=== PATIENT | male | born 1965 ===

== ENCOUNTER 2016-10-05 15:39 | Observation (INO) | payer OTHER ==
--- NOTE | 2016-10-05 15:45 | ED PDOC ---
HPI: General Adult Time Seen by Provider: 10/05/16 15:44 Chief Complaint (Nursing): Medical Clearance Chief Complaint (Provider): clearance for incarceration History Per: Patient, Other (Police) Additional Complaint(s): 51 year old male with history of anxiety is brought into the ED by [place] police for psychiatric and medical clearance prior to incarceration. Patient is currently under arrest. Patient also reports having chest pain earlier, but this has resolved upon arrival to ED. No associated shortness of breath or dyspnea on exertion. Patient denies suicidal or homicidal ideation. PMD: Dr. Jennifer Liu Past Medical History Reviewed: Historical Data, Nursing Documentation, Vital Signs Vital Signs: Last Vital Signs Temp 98.7 F 10/05/16 19:56 Pulse 88 10/05/16 19:56 Resp 19 10/05/16 19:56 BP 130/86 10/05/16 19:56 Pulse Ox 97 10/05/16 19:59 - Medical History PMH: Anxiety - Surgical History Surgical History: No Surg Hx - Family History Family History: States: No Known Family Hx - Social History Current smoker - smoking cessation education provided: No Alcohol: Occasional Drugs: Denies - Home Medications Home Medications: Ambulatory Orders Medication Instructions Recorded Aspirin [Aspirin Chewable] 81 mg PO DAILY 10/05/16 - Allergies Allergies/Adverse Reactions: Allergies Allergy/AdvReac Type Severity Reaction Status Date / Time No Known Allergies Allergy Verified 10/05/16 15:40 Review of Systems ROS Statement: Except As Marked, All Systems Reviewed And Found Negative Cardiovascular: Positive for: Chest Pain (earlier, now resolved) Respiratory: Negative for: Cough, Shortness of Breath, SOB with Exertion Gastrointestinal: Negative for: Nausea, Vomiting Psych: Positive for: Anxiety, Other (etoh). Negative for: Suicidal ideation ( denies suicidal and homicidal ideation) Physical Exam - Reviewed Nursing Documentation Reviewed: Yes Vital Signs Reviewed: Yes - Physical Exam Appears: Positive for: Well, Non-toxic, No Acute Distress Head Exam: Positive for: ATRAUMATIC, NORMAL INSPECTION Skin: Positive for: Normal Color, Warm, DRY Eye Exam: Positive for: EOMI, Normal appearance, PERRL ENT: Positive for: Other (etoh on breath) Neck: Positive for: Normal, Painless ROM Cardiovascular/Chest: Positive for: Regular Rate, Rhythm Respiratory: Positive for: Normal Breath Sounds. Negative for: Respiratory Distress Extremity: Positive for: Normal ROM Neurologic/Psych: Positive for: Alert, Oriented (x 3), Gait (steady), Other ( intoxicated, answers questons appropriately) - Laboratory Results Result Diagrams: 10/05/16 16:34 10/05/16 16:34 - ECG Interpretation Of ECG: NSR 66 bpm, no acute finding, reviewed by hand sign writer and ED attending. O2 Sat by Pulse Oximetry: 97 (RA) Pulse Ox Interpretation: Normal Medical Decision Making Medical Decision Makin:44 Initial impression: 51 year old male brought into the ED for psychiatric and medical clearance prior to incarceration. Intial plan: * CBC * CMP * troponin I * EKG * alcohol level * urine drug screen * crisis evaluation as ordered * Admit to ED observation Scribe Attestation: Documented by Ana Lilia Pham, acting as a scribe for Millicent Apodaca PA-C. Provider Scribe Attestation: All medical record entries made by the Scribe were at my direction and personally dictated by me. I have reviewed the chart and agree that the record accurately reflects my personal performance of the history, physical exam, medical decision making, and the department course for this patient. I have also personally directed, reviewed, and agree with the discharge instructions and disposition. ED OBSERVATION Date of observation admission: 10/05/16 Time of observation admission: 17:14 - Observation admission statement Patient is being placed in observation because:: ETOH intoxication, crisis clearance - Goals of Observation Goals of observation are:: Monitor patient pending sobriety, needs crisis eval when sober. - Progress Note Progress Note: 10/05/16 17:15 BAL is 239. Patient can be seen by crisis at 9:30 pm as per etoh level. [employer] senior officer is at bedside. Patient will continue to be monitored in ED. 10/05/16 18:25 Patient is resting comfortably, in no distress 10/05/16 19:58 Patient is sleeping, vital signs stable, [employer] police at bedside. 10/05/16 21:31 Patient was seen by crisis counselor. As per counselor and psychiatrist invisible braces orthodontist , Peyman Desir, patient does not meet criteria for admission and is stable for discharge. Disposition - Clinical Impression Clinical Impression: Alcohol intoxication, Anxiety - Disposition Disposition: Discharged/Transfer to Law Enforcement Disposition Time: 21:32 Condition: STABLE Results - Lab Results Lab Results: 10/05/16 10/05/16 10/05/16 16:34 16:34 16:10 WBC 10.3 RBC 5.55 Hgb 16.4 Hct 47.3 MCV 85.2 D MCH 29.5 MCHC 34.7 RDW 13.9 Plt Count 259 MPV 8.5 Neut % (Auto) 60.3 Lymph % (Auto) 31.5 [place] % (Auto) 6.9 Eos % (Auto) 0.9 Baso % (Auto) 0.4 Neut # 6.2 Lymph # 3.2 [place] # 0.7 Eos # 0.1 Baso # 0.0 Sodium 150 H Potassium 4.1 Chloride 112 H Carbon Dioxide 20 L Anion Gap 22 H BUN 14 Creatinine 0.9 Est GFR ( Amer) > 60 Est GFR (Non-Af Amer) > 60 Random Glucose 90 Calcium 9.2 Total Bilirubin 1.0 AST 66 H ALT 50 Alkaline Phosphatase 67 Troponin I < 0.0120 Total Protein 8.8 H Albumin 4.6 Globulin 4.2 H Albumin/Globulin Ratio 1.1 Urine Opiates Screen Negative Urine Methadone Screen Negative Ur Barbiturates Screen Negative Ur Phencyclidine Scrn Negative Ur Amphetamines Screen Negative U Benzodiazepines Scrn Negative U Oth Cocaine Metabols Negative U Cannabinoids Screen Negative Alcohol, Quantitative 239 H
[2016-10-05 16:43] LABS: BASO % 0.4 % (0.0-2.0); EOS # 0.1 K/uL (0.0-0.7); EOS % 0.9 % (0.0-4.0); HEMATOCRIT 47.3 % (35.0-51.0); LYMPH # 3.2 K/uL (1.0-4.3); LYMPH % 31.5 % (20.0-40.0); MEAN CELL VOLUME 85.2 fl (80.0-94.0); MEAN CORPUSCULAR HEMOGLOBIN 29.5 pg (27.0-31.0); MEAN CORPUSCULAR HGB CONC 34.7 g/dL (33.0-37.0); MEAN PLATELET VOLUME 8.5 fl (7.2-11.7); MONO # 0.7 K/uL (0.0-0.8); MONO % 6.9 % (0.0-10.0); NEUT # 6.2 K/uL (1.8-7.0); NEUT % 60.3 % (50.0-75.0); NRBC % 0.1 % (0.0-0.0); RED CELL DISTRIBUTION WIDTH 13.9 % (11.5-14.5); WHITE BLOOD COUNT 10.3 K/uL (4.8-10.8)
[2016-10-05 17:09] LABS: ALB/GLOB RATIO 1.1 (1.0-2.1); ALCOHOL SERUM 239 mg/dl (0-10); ALKALINE PHOSPHATASE 67 U/L (38-126); ALT/SGPT 50 U/L (21-72); AST/SGOT 66 U/L (17-59); BLOOD UREA NITROGEN 14 mg/dl (9-20); CALCIUM 9.2 mg/dL (8.4-10.2); CARBON DIOXIDE 20 mmol/L (22-30); CHLORIDE 112 mmol/L (98-107); GFR AFRICAN-AMERICAN > 60; GLUCOSE,RANDOM 90 mg/dL (75-110); POTASSIUM 4.1 MMOL/L (3.6-5.0); SODIUM 150 mmol/l (132-148); TOTAL PROTEIN 8.8 G/DL (6.3-8.2)
[2016-10-05 19:56] VITALS: BP 130/86; PULSE 88; RESP 19; TEMP 98.7
[2016-10-05 19:59] VITALS: O2SAT 97
--- NOTE | 2016-10-06 10:03 | CARD ---
APPROVED REPORT EKG Measurement Heart [id number] PA 170P46 [id number] <Conclusion> Normal sinus rhythm Possible Left atrial enlargement ST elevation, probably due to early repolarization Borderline ECG
== END 2016-10-05 21:47 | disposition home or self-care (01) ==
LOC: H.ER 15:39 → H.EROBSV 17:13
PROVIDERS: ADMIT Emergency Medicine; ATTEND Emergency Medicine
DX: F10.129 Alcohol abuse with intoxication, unspecified (principal); F41.9 Anxiety disorder, unspecified

== ENCOUNTER 2016-12-15 13:52 | Emergency (ER) | payer OTHER ==
[2016-12-15 13:57] VITALS: BP 136/90; PULSE 90; RESP 19; TEMP 98.1; O2SAT 100
--- NOTE | 2016-12-15 14:16 | ED PDOC ---
HPI: Psych/Substance Abuse Time Seen by Provider: 12/15/16 14:10 Chief Complaint (Nursing): Alcohol Ingestion Chief Complaint (Provider): Alcohol Ingestion History Per: Patient History/Exam Limitations: no limitations Onset/Duration Of Symptoms: Hrs Additional Complaint(s): Alin Greenwood is a 51 year old male with a past medical history of anxiety who presents to the ED accompanied by [place] police for evaluation of alcohol intoxication. Police report they found patient sleep on the street. Past Medical History Reviewed: Historical Data, Nursing Documentation, Vital Signs Vital Signs: Last Vital Signs Temp 98.1 F 12/15/16 13:54 Pulse 90 12/15/16 13:54 Resp 19 12/15/16 13:54 BP 136/90 12/15/16 13:54 Pulse Ox 100 12/15/16 13:54 - Medical History PMH: Anxiety Denies: Diabetes, Hepatitis, HIV, HTN, Seizures, Sexually Transmitted Disease - Surgical History Surgical History: No Surg Hx - Family History Family History: States: Unknown Family Hx - Immunization History Hx Tetanus Toxoid Vaccination: No Hx Influenza Vaccination: No Hx Pneumococcal Vaccination: No - Home Medications Home Medications: Ambulatory Orders Medication Instructions Recorded Aspirin [Aspirin Chewable] 81 mg PO DAILY 10/05/16 - Allergies Allergies/Adverse Reactions: Allergies Allergy/AdvReac Type Severity Reaction Status Date / Time No Known Allergies Allergy Verified 10/05/16 15:40 Review of Systems ROS Statement: Except As Marked, All Systems Reviewed And Found Negative Physical Exam - Reviewed Nursing Documentation Reviewed: Yes Vital Signs Reviewed: Yes - Physical Exam Appears: Positive for: Well, Non-toxic, No Acute Distress Head Exam: Positive for: ATRAUMATIC, NORMAL INSPECTION, NORMOCEPHALIC Skin: Positive for: Normal Color Eye Exam: Positive for: Normal appearance ENT: Positive for: Normal ENT Inspection Neck: Positive for: Normal Cardiovascular/Chest: Positive for: Regular Rate, Rhythm. Negative for: Murmur , Tachycardia Respiratory: Positive for: Normal Breath Sounds. Negative for: Wheezing, Respiratory Distress Neurologic/Psych: Positive for: Alert, Oriented, Gait (Stable), Other (Speech is not slurred) - ECG O2 Sat by Pulse Oximetry: 100 (RA) Pulse Ox Interpretation: Normal Medical Decision Making Medical Decision Makin: Initial Impression: 51 year old male with alcohol ingestion Initial Plan: Patient will be discharged home via cab. Scribe Attestation: Documented by Mikey Fortune acting as a scribe for Armida Vasquez PA-C. Provider Scribe Attestation: All medical record entries made by the Scribe were at my direction and personally dictated by me. I have reviewed the chart and agree that the record accurately reflects my personal performance of the history, physical exam, medical decision making, and the department course for this patient. I have also personally directed, reviewed, and agree with the discharge instructions and disposition. Disposition - Clinical Impression Clinical Impression: Alcohol abuse - Patient ED Disposition Is Patient to be Admitted: No - Disposition Disposition: Routine/Home Disposition Time: 14:14 Condition: STABLE Instructions: Alcohol Intoxication (ED)
== END 2016-12-15 14:11 | disposition home or self-care (01) ==
LOC: H.ER 13:52
DX: F10.10 Alcohol abuse, uncomplicated (principal); F41.9 Anxiety disorder, unspecified; Z79.82 Long term (current) use of aspirin

== ENCOUNTER 2017-03-16 18:17 | Emergency (ER) | payer OTHER ==
[2017-03-16 18:23] VITALS: BP 140/89; PULSE 71; RESP 16; TEMP 96.2; O2SAT 100
[2017-03-16 19:18] LABS: HEMATOCRIT 46.9 % (35.0-51.0); MEAN CELL VOLUME 89.8 fl (80.0-94.0); MEAN CORPUSCULAR HEMOGLOBIN 30.9 pg (27.0-31.0); MEAN CORPUSCULAR HGB CONC 34.4 g/dL (33.0-37.0); RED CELL DISTRIBUTION WIDTH 15.7 % (11.5-14.5); WHITE BLOOD COUNT 9.4 K/uL (4.8-10.8)
--- NOTE | 2017-03-16 19:52 | ED PDOC ---
HPI: Psych/Substance Abuse Time Seen by Provider: 03/16/17 18:40 Chief Complaint (Nursing): Anxiety Chief Complaint (Provider): anxiety Additional Complaint(s): 51yo M in ED for eval of chest pain and anxiety and required medical clearance and pysch clearance. admits to hx of anxiety and heart disease-takes ASA 81mg. no SI/HI/hallucinations Past Medical History Reviewed: Historical Data, Nursing Documentation, Vital Signs Vital Signs: Last Vital Signs Temp 96.2 F L 03/16/17 18:20 Pulse 71 03/16/17 18:20 Resp 16 03/16/17 18:20 BP 140/89 03/16/17 18:20 Pulse Ox 100 03/16/17 18:20 - Medical History PMH: Anxiety Denies: Diabetes, Hepatitis, HIV, HTN, Seizures, Sexually Transmitted Disease - Family History Family History: States: Unknown Family Hx - Immunization History Hx Tetanus Toxoid Vaccination: No Hx Influenza Vaccination: No Hx Pneumococcal Vaccination: No - Home Medications Home Medications: Ambulatory Orders Medication Instructions Recorded Aspirin [Aspirin Chewable] 81 mg PO DAILY 10/05/16 - Allergies Allergies/Adverse Reactions: Allergies Allergy/AdvReac Type Severity Reaction Status Date / Time No Known Allergies Allergy Verified 10/05/16 15:40 Review of Systems ROS Statement: Except As Marked, All Systems Reviewed And Found Negative Constitutional: Negative for: Fever, Chills, Weakness Psych: Positive for: Anxiety. Negative for: Depression, Psychosis, Suicidal ideation, Withdrawal Physical Exam - Reviewed Nursing Documentation Reviewed: Yes Vital Signs Reviewed: Yes - Physical Exam Appears: Positive for: Well, Non-toxic, No Acute Distress Head Exam: Positive for: ATRAUMATIC, NORMAL INSPECTION, NORMOCEPHALIC Skin: Positive for: Normal Color, Warm, DRY Eye Exam: Positive for: Normal appearance, EOMI, PERRL Cardiovascular/Chest: Positive for: Regular Rate, Rhythm Respiratory: Positive for: CNT, Normal Breath Sounds Gastrointestinal/Abdominal: Positive for: Normal Exam, Bowel Sounds, Soft Extremity: Positive for: Normal ROM Neurologic/Psych: Positive for: Alert, Oriented - Laboratory Results Result Diagrams: 03/16/17 18:55 03/16/17 18:55 - ECG ECG Rhythm: Positive for: Normal QRS, Normal ST Segment, Sinus Rhythm O2 Sat by Pulse Oximetry: 100 - Progress ED Course And Treament: Orders Category Date Time Status ELECTROCARDIOGRAM Stat Cardiology 03/16/17 18:41 Ordered ALCOHOL SERUM Stat Chem 03/16/17 18:55 Received COMP METABOLIC PANEL Stat Chem 03/16/17 18:55 Received TROPONIN I Stat Chem 03/16/17 18:55 Received EKG-ED [[id number]] STAT ED Care 03/16/17 18:41 Active CBC Stat HEIDY 03/16/17 18:55 Completed Medical Decision Making Medical Decision Making: pt is cleared by karissa-cat anxiety under MD Della Pt with low K+-replenished with K-dur . otherwise stable for d.c-medically cleared 03/16/17 18:55 WBC 9.4 RBC 5.23 Hgb 16.1 Hct 46.9 MCV 89.8 D MCH 30.9 MCHC 34.4 RDW 15.7 H Plt Count 278 Disposition - Clinical Impression Clinical Impression: Alcohol abuse, Anxiety - Patient ED Disposition Is Patient to be Admitted: No Counseled Patient/Family Regarding: Studies Performed, Need For Followup - Disposition Disposition: Routine/Home Disposition Time: 20:07 Condition: STABLE Additional Instructions: Alin Arnold is medically and psychiatrically cleared at this time for incarceration. Instructions: Anxiety (ED) Forms: [employer] (Kenyan)
[2017-03-16 20:02] LABS: BLOOD UREA NITROGEN 12 mg/dl (9-20); CARBON DIOXIDE 19 mmol/L (22-30); CHLORIDE 108 mmol/L (98-107); GFR AFRICAN-AMERICAN > 60; GLUCOSE,RANDOM 123 mg/dL (75-110); POTASSIUM 3.3 MMOL/L (3.6-5.0); SODIUM 145 mmol/l (132-148)
[2017-03-16 20:03] LABS: ALB/GLOB RATIO 1.3 (1.0-2.1); ALKALINE PHOSPHATASE 63 U/L (38-126); ALT/SGPT 55 U/L (21-72); AST/SGOT 49 U/L (17-59); BILIRUBIN,TOTAL 0.4 mg/dl (0.2-1.3); CALCIUM 8.9 mg/dL (8.4-10.2); TOTAL PROTEIN 7.9 G/DL (6.3-8.2)
[2017-03-16 20:04] LABS: ALCOHOL SERUM 130 mg/dl (0-10)
[2017-03-16] MEDS ORDERED: Potassium Chloride 10 mEq ER Tab PO STA (20:06)
[2017-03-16] MEDS ORDERED: Potassium Chloride 10 mEq ER Tab PO ONE (20:10)
--- NOTE | 2017-03-17 08:31 | CARD ---
APPROVED REPORT EKG Measurement Heart [id number] CA 154P58 [id number] <Conclusion> Normal sinus rhythm Possible Left atrial enlargement Borderline ECG
== END 2017-03-16 21:15 ==
LOC: H.ER 18:17
DX: F41.9 Anxiety disorder, unspecified (principal)

== ENCOUNTER 2017-03-22 06:13 | Emergency (ER) | payer OTHER ==
[2017-03-22 06:22] VITALS: TEMP 98.6; O2SAT 98
--- NOTE | 2017-03-22 07:30 | ED PDOC ---
HPI: Psych/Substance Abuse Time Seen by Provider: 03/22/17 07:16 Chief Complaint (Nursing): Medical Clearance Chief Complaint (Provider): Anxiety History Per: Patient, EMS History/Exam Limitations: no limitations Onset/Duration Of Symptoms: Days (today) Additional Complaint(s): Pt. was under arrest for warrants. He was at the police station and said he was anxious so brought to the ED. Pt. denies suicidal or homicidal ideation. No weakness, headaches, chest pain, abd pain, dyspnea, dizziness. No physical complaints. No fall or injury. No drugs or etoh. Past Medical History Reviewed: Nursing Documentation, Vital Signs Vital Signs: Last Vital Signs Temp 98.6 F 03/22/17 06:19 Pulse 78 03/22/17 06:19 Resp 16 03/22/17 06:19 BP 148/93 H 03/22/17 06:19 Pulse Ox 98 03/22/17 06:19 - Medical History PMH: Anxiety Denies: Diabetes, Hepatitis, HIV, HTN, Seizures, Sexually Transmitted Disease - Surgical History Surgical History: No Surg Hx - Family History Family History: States: Unknown Family Hx - Social History Current smoker - smoking cessation education provided: No Alcohol: None Drugs: Denies - Immunization History Hx Tetanus Toxoid Vaccination: No Hx Influenza Vaccination: No Hx Pneumococcal Vaccination: No - Home Medications Home Medications: Ambulatory Orders Medication Instructions Recorded Aspirin [Aspirin Chewable] 81 mg PO DAILY 10/05/16 - Allergies Allergies/Adverse Reactions: Allergies Allergy/AdvReac Type Severity Reaction Status Date / Time No Known Allergies Allergy Verified 10/05/16 15:40 Review of Systems ROS Statement: Except As Marked, All Systems Reviewed And Found Negative Physical Exam - Reviewed Nursing Documentation Reviewed: Yes Vital Signs Reviewed: Yes - Physical Exam Appears: Positive for: Non-toxic, No Acute Distress Head Exam: Positive for: ATRAUMATIC, NORMAL INSPECTION, NORMOCEPHALIC Skin: Positive for: Normal Color, Warm, DRY Eye Exam: Positive for: EOMI, Normal appearance, PERRL ENT: Positive for: Normal ENT Inspection Neck: Positive for: Normal, Painless ROM Cardiovascular/Chest: Positive for: Regular Rate, Rhythm Respiratory: Positive for: CNT, Normal Breath Sounds Gastrointestinal/Abdominal: Positive for: Normal Exam, Bowel Sounds, Soft. Negative for: Tenderness Back: Positive for: Normal Inspection. Negative for: L CVA Tenderness, R CVA Tenderness Extremity: Positive for: Normal ROM. Negative for: Tenderness, Pedal Edema Neurologic/Psych: Positive for: Alert, Oriented - ECG O2 Sat by Pulse Oximetry: 98 Pulse Ox Interpretation: Normal - Progress ED Course And Treament: 813: Stable. AAOx3. Pain free. Crisis saw pt. Does not meet criteria for admit. Fu outpt. Disposition - Clinical Impression Clinical Impression: Anxiety - Patient ED Disposition Is Patient to be Admitted: No Counseled Patient/Family Regarding: Diagnosis, Need For Followup - Disposition Referrals: [facility] [Outside] - 03/24/17 [facility] [Outside] - 03/24/17 Disposition: Routine/Home Disposition Time: 08:14 Condition: STABLE Additional Instructions: Return if not better in 3 days. You are psychiatrically and medically cleared for incarceration. Instructions: Anxiety (ED)
[2017-03-22 08:54] VITALS: BP 125/79; PULSE 75; RESP 14
== END 2017-03-22 08:49 ==
LOC: H.ER 06:13
DX: F41.9 Anxiety disorder, unspecified (principal); Z79.82 Long term (current) use of aspirin; Z02.89 Encounter for other administrative examinations

== ENCOUNTER 2017-07-13 03:48 | Emergency (ER) | payer OTHER ==
[2017-07-13 03:48] VITALS: BMI 26.4
[2017-07-13 04:04] VITALS: BP 133/84; PULSE 77; RESP 16; TEMP 97.4; O2SAT 96
--- NOTE | 2017-07-13 04:09 | ED PDOC ---
HPI: General Adult Time Seen by Provider: 07/13/17 04:02 Chief Complaint (Nursing): Medical Clearance Chief Complaint (Provider): medical and psychiatric clearance History Per: Patient, Other (Police) Additional Complaint(s): 51-year-old male currently under arrest arrives with police officers for medical and psychiatric clearance prior to incarceration. The patient states he has a history of anxiety. He offers no acute medical or psychiatric complaints at this time and denies suicidal or homicidal ideation. Past Medical History Reviewed: Historical Data, Nursing Documentation, Vital Signs Vital Signs: Last Vital Signs Temp 97.4 F L 07/13/17 03:59 Pulse 77 07/13/17 03:59 Resp 16 07/13/17 03:59 BP 133/84 07/13/17 03:59 Pulse Ox 96 07/13/17 04:35 - Medical History PMH: Anxiety - Surgical History Other surgeries: lymph node removal from groin, lipoma removal from forehead - Family History Family History: States: No Known Family Hx - Social History Current smoker - smoking cessation education provided: Yes Alcohol: Social Drugs: Denies - Home Medications Home Medications: Ambulatory Orders Medication Instructions Recorded Aspirin [Aspirin Chewable] 81 mg PO DAILY 10/05/16 - Allergies Allergies/Adverse Reactions: Allergies Allergy/AdvReac Type Severity Reaction Status Date / Time No Known Allergies Allergy Verified 03/28/17 10:06 Review of Systems ROS Statement: Except As Marked, All Systems Reviewed And Found Negative Constitutional: Negative for: Fever Cardiovascular: Negative for: Chest Pain, Palpitations Respiratory: Negative for: Cough Gastrointestinal: Negative for: Vomiting Psych: Negative for: Suicidal ideation Physical Exam - Reviewed Nursing Documentation Reviewed: Yes Vital Signs Reviewed: Yes - Physical Exam Appears: Positive for: Well, Non-toxic, No Acute Distress Skin: Negative for: Rash Eye Exam: Positive for: Normal appearance Cardiovascular/Chest: Positive for: Regular Rate, Rhythm Respiratory: Positive for: Normal Breath Sounds. Negative for: Wheezing, Respiratory Distress Neurologic/Psych: Positive for: Alert, Oriented - ECG O2 Sat by Pulse Oximetry: 96 Pulse Ox Interpretation: Normal Medical Decision Making Medical Decision Makin51 year old in police custody, here for medical and psychiatric clearance. Plan: Crisis eval As per crisis counselor and psychiatrist operations engineer, Dr. Hurst, patient does not meet criteria for admission and is stable for discharge. Patient is medically and psychiatrically stable for incarceration. Disposition - Clinical Impression Clinical Impression: Anxiety, Medical clearance for incarceration - Patient ED Disposition Is Patient to be Admitted: No - Disposition Referrals: [facility] [Outside] Disposition: Discharged/Transfer to Law Enforcement Disposition Time: 04:46 Condition: STABLE Additional Instructions: Patient is medically and psychiatrically stable for incarceration. Instructions: Anxiety (ED) Forms: [employer] (Kazakh)
== END 2017-07-13 04:59 | disposition home or self-care (01) ==
LOC: H.ER 03:48
DX: F41.9 Anxiety disorder, unspecified; Z79.82 Long term (current) use of aspirin; F17.200 Nicotine dependence, unspecified, uncomplicated

== ENCOUNTER 2017-09-21 04:28 | Emergency (ER) | payer OTHER ==
[2017-09-21 04:28] VITALS: BMI 26.4
[2017-09-21 05:14] VITALS: TEMP 98
--- NOTE | 2017-09-21 05:44 | ED PDOC ---
HPI: Psych/Substance Abuse Time Seen by Provider: 09/21/17 04:55 Chief Complaint (Nursing): Medical Clearance Chief Complaint (Provider): Medical Clearance History Per: Patient History/Exam Limitations: no limitations Current Symptoms Are (Timing): Constant Modifying Factor(s): Cocaine Additional History Per: EMS, Law Enforcement Additional Complaint(s): 52-year-old male brought in by EMS and [facility] for medical psychiatric clearance for incarceration. Patient reports chest pain after doing crack cocaine. States chest pain is constant, but denies difficulty breathing, syncope, dizziness, depression, HI or SI. Patient wants to eat. PMD: [place] Past Medical History Reviewed: Historical Data, Nursing Documentation, Vital Signs Vital Signs: Last Vital Signs Temp 98.0 F 09/21/17 04:43 Pulse 77 09/21/17 04:43 Resp 18 09/21/17 04:43 BP 133/88 09/21/17 04:43 Pulse Ox 100 09/21/17 04:43 - Medical History PMH: Anxiety Denies: Diabetes, Hepatitis, HIV, HTN, Seizures, Sexually Transmitted Disease - Surgical History Surgical History: No Surg Hx - Family History Family History: States: Unknown Family Hx - Social History Drugs: Cocaine - Home Medications Home Medications: Ambulatory Orders Medication Instructions Recorded Aspirin [Aspirin Chewable] 81 mg PO DAILY 10/05/16 - Allergies Allergies/Adverse Reactions: Allergies Allergy/AdvReac Type Severity Reaction Status Date / Time No Known Allergies Allergy Verified 03/28/17 10:06 Review of Systems ROS Statement: Except As Marked, All Systems Reviewed And Found Negative Cardiovascular: Positive for: Chest Pain Respiratory: Negative for: Other (difficulty breathing) Neurological: Negative for: Dizziness, Other (syncope) Psych: Negative for: Depression, Suicidal ideation, Other (Homicidal ideation) Physical Exam - Reviewed Nursing Documentation Reviewed: Yes Vital Signs Reviewed: Yes - Physical Exam Appears: Positive for: Well Head Exam: Positive for: ATRAUMATIC, NORMAL INSPECTION, NORMOCEPHALIC Skin: Positive for: Normal Color, Warm, Dry Eye Exam: Positive for: Normal appearance, EOMI, PERRL ENT: Positive for: Normal ENT Inspection Neck: Positive for: Normal Cardiovascular/Chest: Positive for: Regular Rate, Rhythm Respiratory: Positive for: Normal Breath Sounds. Negative for: Respiratory Distress Gastrointestinal/Abdominal: Positive for: Normal Exam Back: Positive for: Normal Inspection Extremity: Positive for: Normal ROM. Negative for: Deformity Neurologic/Psych: Positive for: Alert, Oriented (x 3). Negative for: Motor/ Sensory Deficits - Laboratory Results Result Diagrams: 09/21/17 06:00 09/21/17 05:48 - ECG O2 Sat by Pulse Oximetry: 100 (RA) Pulse Ox Interpretation: Normal Medical Decision Making Medical Decision Making: Time: 05:24 Impression(s): Cocaine-induced Chest Pain, ACS (less likely) Differentials include, but not limited to: Malingering Plan: - EKG - BMP - Troponin I - CBC Scribe Attestation: Documented by Jace Villegas, acting as a scribe for Natalia Licea MD. Provider Scribe Attestation: All medical record entries made by the Scribe were at my direction and personally dictated by me. I have reviewed the chart and agree that the record accurately reflects my personal performance of the history, physical exam, medical decision making, and the department course for this patient. I have also personally directed, reviewed, and agree with the discharge instructions and disposition. Disposition - Clinical Impression Clinical Impression: Adjustment disorder with anxiety, Atypical chest pain - Patient ED Disposition Is Patient to be Admitted: Transfer of Care Counseled Patient/Family Regarding: Studies Performed, Diagnosis - Disposition Referrals: [facility] [Outside] Disposition: Transfer of Care Disposition Time: 07:00 Condition: STABLE Additional Instructions: PATIENT MEDICALLY AND PSYCHIATRICALLY CLEARED FOR INCARCERATION. Instructions: Adjustment Disorder, Chest Pain Patient Signed Over To: Mely Dill
[2017-09-21 06:07] LABS: BLOOD UREA NITROGEN 13 mg/dl (9-20); CALCIUM 9.2 mg/dL (8.4-10.2); GFR AFRICAN-AMERICAN > 60; GFR NON-AFRICAN AMERICAN > 60
[2017-09-21 06:24] LABS: BASO # 0.1 K/uL (0.0-0.2); EOS # 0.1 K/uL (0.0-0.7); EOS % 0.6 % (0.0-4.0); HEMOGLOBIN 15.7 g/dL (12.0-18.0); LYMPH # 2.5 K/uL (1.0-4.3); LYMPH % 25.6 % (20.0-40.0); MEAN CELL VOLUME 91.2 fl (80.0-94.0); MEAN CORPUSCULAR HEMOGLOBIN 31.4 pg (27.0-31.0); MEAN CORPUSCULAR HGB CONC 34.5 g/dL (33.0-37.0); MEAN PLATELET VOLUME 8.2 fl (7.2-11.7); MONO # 0.7 K/uL (0.0-0.8); MONO % 7.6 % (0.0-10.0); NEUT # 6.3 K/uL (1.8-7.0); NEUT % 65.2 % (50.0-75.0); NRBC % 0.1 % (0.0-0.0); RBC 4.99 Mil/uL (4.40-5.90); RED CELL DISTRIBUTION WIDTH 14.8 % (11.5-14.5); WHITE BLOOD COUNT 9.7 K/uL (4.8-10.8)
[2017-09-21 07:06] VITALS: BP 134/79; PULSE 76; RESP 16
--- NOTE | 2017-09-21 08:02 | ED PDOC ---
- Laboratory Results Result Diagrams: 09/21/17 06:00 09/21/17 05:48 - ECG O2 Sat by Pulse Oximetry: 98 (RA) Pulse Ox Interpretation: Normal Medical Decision Making Medical Decision Making: Time:0700 Patient signed out to me by Dr. Licea pending crisis evaluation. Medically cleared by Dr. Licea. Clinical Impression: Adjustment disorder with anxiety, Atypical Chest Pain Upon provider evaluation patient is medically stable, and requires no further treatment in the ED at this time. Patient will be discharged. Counseling was provided and all questions were answered regarding diagnosis and need for follow up with PMD. There is agreement to discharge plan. Return if symptoms persist or worsen. Scribe Attestation: Documented by Pennie Myers, acting as a scribe for Mely Dill MD Provider Scribe Attestation: All medical record entries made by the Scribe were at my direction and personally dictated by me. I have reviewed the chart and agree that the record accurately reflects my personal performance of the history, physical exam, medical decision making, and the department course for this patient. I have also personally directed, reviewed, and agree with the discharge instructions and disposition. Disposition - Clinical Impression Clinical Impression: Adjustment disorder with anxiety, Atypical chest pain - POA Present On Arrival: None - Disposition [facility] [Outside] Disposition: Discharged/Transfer to Law Enforcement Disposition Time: 08:38 Condition: STABLE Additional Instructions: PATIENT MEDICALLY AND PSYCHIATRICALLY CLEARED FOR INCARCERATION. Instructions: Adjustment Disorder, Chest Pain Forms: [employer] (Croatian)
--- NOTE | 2017-09-21 10:40 | CARD ---
APPROVED REPORT EKG Measurement Heart [id number] <Conclusion> Normal sinus rhythm Possible Left atrial enlargement Early repolarization Borderline ECG
[2017-09-22 17:48] VITALS: O2SAT 100
== END 2017-09-21 09:15 ==
LOC: H.ER 04:28
DX: F43.22 Adjustment disorder with anxiety; R07.89 Other chest pain; Z79.82 Long term (current) use of aspirin

== ENCOUNTER 2017-10-05 15:52 | Emergency (ER) | payer OTHER ==
[2017-10-05 15:53] VITALS: BMI 26.4
[2017-10-05 15:58] VITALS: BP 145/82; PULSE 79; RESP 18; TEMP 97.9; O2SAT 97
--- NOTE | 2017-10-05 15:59 | ED PDOC ---
HPI: General Adult Time Seen by Provider: 10/05/17 15:56 Chief Complaint (Nursing): Medical Clearance Chief Complaint (Provider): Some anxiety History Per: Patient History/Exam Limitations: no limitations Onset/Duration Of Symptoms: Mins Have you had recent travel within the past 21 days to any of the following countries: [place], [place], [place] or [place]?: No Current Symptoms Are (Timing): Still Present Additional Complaint(s): 52 yo male with history of anxiety brought in by police for evaluation. Pt in police custody and reports some anxiety. Pt deneis SI/HI. Pt calm and cooperative in ER. Pt states he was on xanax at one point but has not taken it in a few months. Denies chest pain, SOB, abdominal pain. Past Medical History Reviewed: Historical Data, Nursing Documentation, Vital Signs Vital Signs: Last Vital Signs Temp 97.9 F 10/05/17 15:55 Pulse 79 10/05/17 15:55 Resp 18 10/05/17 15:55 BP 145/82 10/05/17 15:55 Pulse Ox 97 10/05/17 15:55 - Medical History PMH: Anxiety Denies: Diabetes, Hepatitis, HIV, HTN, Seizures, Sexually Transmitted Disease - Surgical History Surgical History: No Surg Hx - Family History Family History: States: Unknown Family Hx - Living Arrangements Living Arrangements: With Family - Social History Current smoker - smoking cessation education provided: No - Home Medications Home Medications: Ambulatory Orders Medication Instructions Recorded Aspirin [Aspirin Chewable] 81 mg PO DAILY 10/05/16 - Allergies Allergies/Adverse Reactions: Allergies Allergy/AdvReac Type Severity Reaction Status Date / Time No Known Allergies Allergy Verified 10/05/17 15:55 Review of Systems ROS Statement: Except As Marked, All Systems Reviewed And Found Negative Constitutional: Negative for: Fever, Chills Neurological: Negative for: Dizziness Psych: Positive for: Anxiety. Negative for: Depression, Psychosis, Suicidal ideation, Withdrawal Physical Exam - Reviewed Nursing Documentation Reviewed: Yes Vital Signs Reviewed: Yes - Physical Exam Appears: Positive for: Well, Non-toxic, No Acute Distress Head Exam: Positive for: ATRAUMATIC, NORMAL INSPECTION, NORMOCEPHALIC Skin: Positive for: Normal Color, Warm, DRY Eye Exam: Positive for: Normal appearance ENT: Positive for: Normal ENT Inspection Neck: Positive for: Normal, Painless ROM Cardiovascular/Chest: Positive for: Regular Rate, Rhythm Respiratory: Positive for: Normal Breath Sounds. Negative for: Accessory Muscle Use, Respiratory Distress Back: Positive for: Normal Inspection Extremity: Positive for: Normal ROM Neurologic/Psych: Positive for: Alert, Oriented Medical Decision Making Medical Decision Making: Xanax 0.25 given in ER. Disposition - Clinical Impression Clinical Impression: Anxiety - Patient ED Disposition Is Patient to be Admitted: No Counseled Patient/Family Regarding: Diagnosis, Need For Followup - Disposition Disposition: Routine/Home Disposition Time: 15:59 Condition: STABLE Additional Instructions: Pt medically and psychiatrically stable for incarceration. Instructions: General (DC) Forms: [employer] (Honduran)
== END 2017-10-05 16:40 ==
LOC: H.ER 15:52
DX: F41.9 Anxiety disorder, unspecified (principal)

== ENCOUNTER 2017-12-01 22:06 | Emergency (ER) | payer OTHER ==
[2017-12-01 22:06] VITALS: BMI 26.4
[2017-12-01 23:22] LABS: BASO # 0.1 K/uL (0.0-0.2); EOS # 0.1 K/uL (0.0-0.7); EOS % 1.3 % (0.0-4.0); HEMOGLOBIN 15.7 g/dL (12.0-18.0); LYMPH # 2.6 K/uL (1.0-4.3); LYMPH % 22.5 % (20.0-40.0); MEAN CELL VOLUME 91.7 fl (80.0-94.0); MEAN CORPUSCULAR HEMOGLOBIN 31.6 pg (27.0-31.0); MEAN CORPUSCULAR HGB CONC 34.5 g/dL (33.0-37.0); MEAN PLATELET VOLUME 8.5 fl (7.2-11.7); MONO % 8.9 % (0.0-10.0); NEUT # 7.7 K/uL (1.8-7.0); NEUT % 66.3 % (50.0-75.0); NRBC % 0.2 % (0.0-0.0); RBC 4.96 Mil/uL (4.40-5.90); RED CELL DISTRIBUTION WIDTH 14.1 % (11.5-14.5); WHITE BLOOD COUNT 11.6 K/uL (4.8-10.8)
[2017-12-01 23:31] LABS: ALB/GLOB RATIO 1.1 (1.0-2.1); ALBUMIN 4.3 g/dL (3.5-5.0); ALT/SGPT 48 U/L (21-72); AST/SGOT 41 U/L (17-59); BLOOD UREA NITROGEN 15 mg/dl (9-20); CALCIUM 8.6 mg/dL (8.4-10.2); GFR AFRICAN-AMERICAN > 60; GFR NON-AFRICAN AMERICAN > 60
--- NOTE | 2017-12-02 01:27 | ED PDOC ---
HPI: General Adult Time Seen by Provider: 12/01/17 22:31 Chief Complaint (Nursing): Medical Clearance Chief Complaint (Provider): Medical Clearance History Per: Patient History/Exam Limitations: no limitations Onset/Duration Of Symptoms: Other (prior to arrival) Current Symptoms Are (Timing): Gone Now Additional Complaint(s): 52 y/o male with a PMHx of anxiety brought in under police arrest for medical and psychiatric clearance. Patient was arrested and brought to senior living between 8-9 pm, while in his senior living cell after being arrested, he began to feel anxious and experienced sharp left sided chest pain, left arm pain with tingling, and difficulty breathing. Patient states his symptoms were consistent with his usual anxiety. He reports no chest pain now or difficulty breathing. He denies any trauma or injury during his arrest. He also denies any headache, dizziness, nausea, vomiting, or abdominal pain. Past Medical History Reviewed: Historical Data, Nursing Documentation, Vital Signs Vital Signs: Last Vital Signs Temp 97.9 F 12/02/17 03:56 Pulse 76 12/02/17 03:56 Resp 18 12/02/17 03:56 BP 131/81 12/02/17 03:56 Pulse Ox 99 12/02/17 03:56 - Medical History PMH: Anxiety Denies: Diabetes, Hepatitis, HIV, HTN, Chronic Kidney Disease, Seizures, Sexually Transmitted Disease - Surgical History Surgical History: No Surg Hx - Family History Family History: States: Diabetes - Social History Current smoker - smoking cessation education provided: No Alcohol: Occasional Drugs: Denies - Immunization History Hx Tetanus Toxoid Vaccination: No Hx Influenza Vaccination: No Hx Pneumococcal Vaccination: No - Home Medications Home Medications: Ambulatory Orders Medication Instructions Recorded Aspirin [Aspirin Chewable] 81 mg PO DAILY 10/05/16 - Allergies Allergies/Adverse Reactions: Allergies Allergy/AdvReac Type Severity Reaction Status Date / Time No Known Allergies Allergy Verified 10/05/17 15:55 Review of Systems ROS Statement: Except As Marked, All Systems Reviewed And Found Negative Cardiovascular: Positive for: Chest Pain (resolved) Respiratory: Positive for: Shortness of Breath (resolved) Gastrointestinal: Negative for: Nausea, Vomiting, Abdominal Pain Musculoskeletal: Positive for: Arm Pain (left, resolved) Neurological: Negative for: Headache, Dizziness Physical Exam - Reviewed Nursing Documentation Reviewed: Yes Vital Signs Reviewed: Yes - Physical Exam Comments: GENERAL APPEARANCE: Patient is awake, alert, oriented x 3, in no acute distress. SKIN: Warm, dry; (-) cyanosis HEAD: (-) scalp swelling, (-) scalp tenderness. EYES: (-) conjunctival pallor, (-) scleral icterus, (-) nystagmus. ENMT: Mucous membranes moist. Airway patent: (-) stridor. NECK: (-) tenderness, (-) stiffness, (-) lymphadenopathy. CHEST AND RESPIRATORY: (-) rales, (-) rhonchi, (-) wheezes; breath sounds equal. HEART AND CARDIOVASCULAR: (-) irregularity; (-) murmur, (-) gallop. ABDOMEN: Soft, (-) distention, (-) tenderness, (-) guarding. NEURO AND PSYCH: Mental status as above. Affect: flat academic program specialist: Intact. Pupils equal and reactive; EOMI; (-) facial asymmetry ; tongue and uvula midline. - Laboratory Results Result Diagrams: 12/01/17 23:00 12/01/17 23:00 - ECG O2 Sat by Pulse Oximetry: 97 (RA) Pulse Ox Interpretation: Normal Medical Decision Making Medical Decision Makin:03 Impression: Medical Clearance Plan: -EKG -Alcohol serum -CMP -Urine drug screen -Troponin I -CBC -CXR -monitoring engineer -IV insertion -Reevaluation EKG : NSR at 74 bpm, no acute ST changes, as read by DICK CXR : NAD, as read by DICK On re-evaluation, patient sleeping in the ER, has no complaints. Lab results reviewed : trop (-), etoh 200, UDS +cocaine, rest of the labs wnl. Patient medically cleared for crisis evaluation. Patient seen and evaluated by crisis. After crisis evaluation, plan will be for outpatient psych follow up as per . Patient slept comfortably the entire time while in the ER. Based on history, exam and diagnostic results, plan will be for outpatient follow up. Patient to be d/c under the care of law enforcement. Return to the emergency room at any time for any new or worsening symptoms. ----- Scribe Attestation: Documented by Roberto Carlos Cadena, acting as a scribe for Rani Cho PA-C. Provider Scribe Attestation: All medical record entries made by the Scribe were at my direction and personally dictated by me. I have reviewed the chart and agree that the record accurately reflects my personal performance of the history, physical exam, medical decision making, and the department course for this patient. I have also personally directed, reviewed, and agree with the discharge instructions and disposition. Disposition - Clinical Impression Clinical Impression: Alcohol intoxication, Anxiety, Adjustment disorder with anxiety - Patient ED Disposition Is Patient to be Admitted: No Counseled Patient/Family Regarding: Studies Performed, Diagnosis - Disposition Referrals: Daniel Dang MD [Primary Care Provider] - Disposition: Discharged/Transfer to Law Enforcement Disposition Time: 03:00 Condition: STABLE Additional Instructions: Patient is medically and psychiatrically cleared for incarceration. Instructions: Adjustment Disorder, Anxiety, Adult (DC), Alcohol Abuse and Alcoholism (DC) Forms: [employer] (Norwegian) - PA / DANCE THERAPIST / Resident Statement MD/DO has reviewed & agrees with the documentation as recorded.
[2017-12-02 01:56] LABS: BARBITURATES, UR NEGATIVE (NEGATIVE); BENZODIAZEPINES, UR NEGATIVE (NEGATIVE); OPIATES, UR NEGATIVE (NEGATIVE); PHENCYCLIDINE, UR NEGATIVE (NEGATIVE)
[2017-12-02 04:25] VITALS: BP 131/81; PULSE 76; RESP 18; TEMP 97.9
[2017-12-02 04:37] VITALS: O2SAT 97
--- NOTE | 2017-12-02 08:31 | RAD ---
PROCEDURE: CHEST RADIOGRAPH, 1 VIEW HISTORY: CP COMPARISON: Portable chest 06/08/2016. FINDINGS: LUNGS: Inspiratory volume is improved dramatically. No acute airspace disease appreciable bilaterally. PLEURA: No pneumothorax or pleural fluid seen. CARDIOVASCULAR: Borderline cardiomegaly. No pulmonary vascular congestion. OSSEOUS STRUCTURES: No significant abnormalities. VISUALIZED UPPER ABDOMEN: Normal. OTHER FINDINGS: None. IMPRESSION: Improved inspiratory volume. No acute pulmonary disease appreciated bilaterally. Borderline cardiomegaly. No pulmonary vascular congestion.
--- NOTE | 2017-12-02 15:01 | CARD ---
APPROVED REPORT EKG Measurement Heart [id number] <Conclusion> Normal sinus rhythm Possible Left atrial enlargement Incomoplete right bundle branch block ST elevation, probably due to early repolarization Borderline ECG
== END 2017-12-02 04:23 ==
LOC: H.ER 22:06
DX: F10.129 Alcohol abuse with intoxication, unspecified (principal); F43.22 Adjustment disorder with anxiety

== ENCOUNTER 2018-02-04 19:11 | Emergency (ER) | payer OTHER ==
[2018-02-04 19:11] VITALS: BMI 26.4
[2018-02-04 19:15] VITALS: BP 153/97; PULSE 86; RESP 16; TEMP 98.9; O2SAT 96
--- NOTE | 2018-02-04 20:59 | ED PDOC ---
HPI: General Adult Time Seen by Provider: 02/04/18 20:37 Chief Complaint (Nursing): Medical Clearance Chief Complaint (Provider): Medical Clearance History Per: Patient, Other (PD) History/Exam Limitations: no limitations Onset/Duration Of Symptoms: Mins (proir to arrival) Current Symptoms Are (Timing): Still Present Additional Complaint(s): 52 year old male, under arrest and police custody, presents to the ED for medical clearance after being found publicly intoxicated. At this time, the patient's only complaint is a bruise on his left lateral chest, which he does not know where it came from. Denies pain, shortness of breath, psych hx, suicidal ideation, and homicidal ideation. Patient is calm and cooperative at this time, requesting water in the ED. PMD: None provided Past Medical History Reviewed: Historical Data, Nursing Documentation, Vital Signs Vital Signs: Last Vital Signs Temp 98.9 F 02/04/18 19:13 Pulse 86 02/04/18 19:13 Resp 16 02/04/18 19:13 BP 153/97 H 02/04/18 19:13 Pulse Ox 96 02/04/18 21:03 - Medical History PMH: Anxiety Denies: Diabetes, Hepatitis, HIV, HTN, Chronic Kidney Disease, Seizures, Sexually Transmitted Disease - Surgical History Other surgeries: lipoma removal - Family History Family History: States: Diabetes - Social History Current smoker - smoking cessation education provided: Yes Alcohol: Social Drugs: Denies - Immunization History Hx Tetanus Toxoid Vaccination: No Hx Influenza Vaccination: No Hx Pneumococcal Vaccination: No - Home Medications Home Medications: Ambulatory Orders Medication Instructions Recorded No Known Home Med 01/12/18 - Allergies Allergies/Adverse Reactions: Allergies Allergy/AdvReac Type Severity Reaction Status Date / Time No Known Allergies Allergy Verified 02/04/18 19:13 Review of Systems ROS Statement: Except As Marked, All Systems Reviewed And Found Negative Constitutional: Negative for: Other (pain) Respiratory: Negative for: Shortness of Breath Skin: Positive for: Bruising (on left lateral chest) Psych: Negative for: Suicidal ideation (and homicidal ideation) Physical Exam - Reviewed Nursing Documentation Reviewed: Yes Vital Signs Reviewed: Yes - Physical Exam Appears: Positive for: No Acute Distress Head Exam: Positive for: ATRAUMATIC, NORMAL INSPECTION, NORMOCEPHALIC Skin: Positive for: Normal Color (except for 5 inch by 4 inch area of bruising on left upper chest near shoulder), Warm, Dry Eye Exam: Positive for: Normal appearance ENT: Positive for: Normal ENT Inspection Neck: Positive for: Normal Cardiovascular/Chest: Positive for: Regular Rate, Rhythm. Negative for: Bradycardia, Tachycardia Respiratory: Positive for: Normal Breath Sounds. Negative for: Accessory Muscle Use, Respiratory Distress Extremity: Positive for: Normal ROM Neurologic/Psych: Positive for: Alert, Oriented (x3), Mood/Affect (calm and cooperative), Gait, Other (Clear speech ) - ECG O2 Sat by Pulse Oximetry: 96 (RA) Pulse Ox Interpretation: Normal Medical Decision Making Medical Decision Making: Time: 2054 Initial Impression: medical clearance Initial Plan: --CXR CXR without acute cardiopulmonary disease. No acute fractures Scribe Attestation: Documented by Najma Muñoz, acting as a scribe for Treasure Washington PA-C. Provider Scribe Attestation: All medical record entries made by the Scribe were at my direction and personally dictated by me. I have reviewed the chart and agree that the record accurately reflects my personal performance of the history, physical exam, medical decision making, and the department course for this patient. I have also personally directed, reviewed, and agree with the discharge instructions and disposition. Disposition - Clinical Impression Clinical Impression: Chest wall contusion - Patient ED Disposition Is Patient to be Admitted: No Counseled Patient/Family Regarding: Diagnosis, Need For Followup - Disposition Referrals: [facility] [Outside] Disposition: Routine/Home Disposition Time: 21:46 Condition: STABLE Additional Instructions: Pt is medically and psychiatrically cleared for incarceration. Instructions: General (DC) Forms: [employer] (Ecuadorean)
--- NOTE | 2018-02-05 09:28 | RAD ---
Date of service: 02/04/2018 HISTORY: left chest wall contusion COMPARISON: No prior. TECHNIQUE: Chest PA and lateral FINDINGS: LUNGS: No active pulmonary disease. PLEURA: No significant pleural effusion identified. No pneumothorax apparent. CARDIOVASCULAR: Normal. OSSEOUS STRUCTURES: No significant abnormalities. VISUALIZED UPPER ABDOMEN: Normal. OTHER FINDINGS: None. IMPRESSION: No interval acute cardiopulmonary disease appreciated.
== END 2018-02-04 22:20 | disposition home or self-care (01) ==
LOC: H.ER 19:11
DX: F10.129 Alcohol abuse with intoxication, unspecified (principal); S20.212A Contusion of left front wall of thorax, initial encounter; Y92.89 Other specified places as the place of occurrence of the external cause; F17.200 Nicotine dependence, unspecified, uncomplicated; F41.9 Anxiety disorder, unspecified

== ENCOUNTER 2018-06-16 21:41 | Emergency (ER) | payer OTHER ==
[2018-06-16 21:41] VITALS: BMI 26.4
[2018-06-16 21:45] VITALS: BP 125/86; PULSE 85; RESP 16; TEMP 98; O2SAT 96
--- NOTE | 2018-06-16 22:04 | ED PDOC ---
HPI: Psych/Substance Abuse Time Seen by Provider: 06/16/18 21:53 Chief Complaint (Nursing): Alcohol Ingestion Chief Complaint (Provider): ETOH History Per: Patient, EMS Additional Complaint(s): 52 y/o male brought in by EMS for evaluation of public intoxication. Patient admits to drinking tonight; denies acute medical or psychiatric complaints Past Medical History Reviewed: Historical Data, Nursing Documentation, Vital Signs Vital Signs: Last Vital Signs Temp 98.0 F 06/16/18 21:43 Pulse 85 06/16/18 21:43 Resp 16 06/16/18 21:43 BP 125/86 06/16/18 21:43 Pulse Ox 96 06/16/18 21:43 - Medical History PMH: Anxiety Denies: Diabetes, Hepatitis, HIV, HTN, Chronic Kidney Disease, Seizures, Sexually Transmitted Disease - Surgical History Surgical History: No Surg Hx - Family History Family History: States: Unknown Family Hx, Diabetes - Immunization History Hx Tetanus Toxoid Vaccination: No Hx Influenza Vaccination: No Hx Pneumococcal Vaccination: No - Home Medications Home Medications: Ambulatory Orders Medication Instructions Recorded No Known Home Med 01/12/18 - Allergies Allergies/Adverse Reactions: Allergies Allergy/AdvReac Type Severity Reaction Status Date / Time No Known Allergies Allergy Verified 06/16/18 21:42 Review of Systems ROS Statement: Except As Marked, All Systems Reviewed And Found Negative Physical Exam - Reviewed Nursing Documentation Reviewed: Yes Vital Signs Reviewed: Yes - Physical Exam Appears: Positive for: Well, Non-toxic, No Acute Distress Head Exam: Positive for: ATRAUMATIC, NORMAL INSPECTION, NORMOCEPHALIC Skin: Positive for: Normal Color Eye Exam: Positive for: Normal appearance ENT: Positive for: Normal ENT Inspection Cardiovascular/Chest: Positive for: Regular Rate, Rhythm Respiratory: Positive for: Normal Breath Sounds Gastrointestinal/Abdominal: Positive for: Normal Exam Back: Positive for: Normal Inspection Extremity: Positive for: Normal ROM Neurologic/Psych: Positive for: Alert, Oriented (x2) - ECG O2 Sat by Pulse Oximetry: 96 - Progress ED Course And Treament: -accucheck -alcohol level -urine drug screen 00:00 Patient sleeping; no distress 1:30 Patient sleeping; no distress 3:00 Patient sleeping; no distress 4:30 Patient awake, alert, oriented x3. Ambulating steady gait Patient requires no further intervention in the ED and is stable for discharge at this time Disposition - Clinical Impression Clinical Impression: Alcohol intoxication - Patient ED Disposition Is Patient to be Admitted: No Counseled Patient/Family Regarding: Studies Performed, Diagnosis, Need For Followup - Disposition Disposition: Routine/Home Disposition Time: 04:39 Condition: IMPROVED Instructions: Alcohol Use - When Is Drinking a Problem?
[2018-06-17 03:01] LABS: BARBITURATES, UR NEGATIVE (NEGATIVE); BENZODIAZEPINES, UR NEGATIVE (NEGATIVE); OPIATES, UR NEGATIVE (NEGATIVE); PHENCYCLIDINE, UR NEGATIVE (NEGATIVE)
== END 2018-06-17 05:44 | disposition home or self-care (01) ==
LOC: H.ER 21:41
DX: F10.129 Alcohol abuse with intoxication, unspecified (principal); F41.9 Anxiety disorder, unspecified

== ENCOUNTER 2018-06-24 22:26 | Emergency (ER) | payer OTHER ==
[2018-06-24 22:27] VITALS: BMI 26.4
[2018-06-24 22:30] VITALS: RESP 12
--- NOTE | 2018-06-24 22:51 | ED PDOC ---
HPI: Psych/Substance Abuse Time Seen by Provider: 06/24/18 22:39 Chief Complaint (Nursing): Medical Clearance Chief Complaint (Provider): palpitations History Per: Patient, Other ([facility]) History/Exam Limitations: no limitations Onset/Duration Of Symptoms: Days (x 1) Current Symptoms Are (Timing): Still Present Suicide/Self Injury Attempted (Context): None Modifying Factor(s): Alcohol Additional History Per: Law Enforcement Additional Complaint(s): 52 year old male with a history of anxiety presents to the ED via [employer] for evaluation and medical clearance. He reports palpitations for many months. Patient admits to drinking. He takes 81 mg of aspirin regularly. Offers no other complaints. Not suicidal or homicidal. PMD: none provided Past Medical History Reviewed: Historical Data, Nursing Documentation, Vital Signs Vital Signs: Last Vital Signs Temp 98.0 F 06/24/18 22:28 Pulse 80 06/24/18 22:28 Resp 12 06/24/18 22:28 BP 116/68 06/24/18 22:28 Pulse Ox 97 06/24/18 22:28 - Medical History PMH: Anxiety Denies: Diabetes, Hepatitis, HIV, HTN, Chronic Kidney Disease, Seizures, Sexually Transmitted Disease - Surgical History Surgical History: No Surg Hx - Family History Family History: States: Unknown Family Hx, Diabetes - Social History Alcohol: > 2 Drinks/Day - Immunization History Hx Tetanus Toxoid Vaccination: No Hx Influenza Vaccination: No Hx Pneumococcal Vaccination: No - Home Medications Home Medications: Ambulatory Orders Medication Instructions Recorded No Known Home Med 01/12/18 - Allergies Allergies/Adverse Reactions: Allergies Allergy/AdvReac Type Severity Reaction Status Date / Time No Known Allergies Allergy Verified 06/24/18 22:30 Review of Systems ROS Statement: Except As Marked, All Systems Reviewed And Found Negative Constitutional: Negative for: Fever, Chills Cardiovascular: Positive for: Palpitations Respiratory: Negative for: Cough, Shortness of Breath Musculoskeletal: Negative for: Neck Pain, Shoulder Pain Physical Exam - Reviewed Nursing Documentation Reviewed: Yes Vital Signs Reviewed: Yes - Physical Exam Appears: Positive for: Non-toxic, No Acute Distress Head Exam: Positive for: ATRAUMATIC, NORMAL INSPECTION, NORMOCEPHALIC Skin: Positive for: Normal Color, Warm, Dry Eye Exam: Positive for: EOMI, Normal appearance, PERRL Neck: Positive for: Normal, Painless ROM, Supple Cardiovascular/Chest: Positive for: Regular Rate, Rhythm, Chest Non Tender. Negative for: Murmur Respiratory: Positive for: Normal Breath Sounds. Negative for: Respiratory Distress Gastrointestinal/Abdominal: Positive for: Normal Exam, Soft. Negative for: Tenderness Back: Positive for: Normal Inspection. Negative for: L CVA Tenderness, R CVA Tenderness Extremity: Positive for: Normal ROM (x 4). Negative for: Deformity Neurologic/Psych: Positive for: Alert, Oriented. Negative for: Motor/Sensory Deficits - ECG ECG: Positive for: Interpreted By Me, Viewed By Me ECG Rhythm: Positive for: Normal QRS, Normal ST Segment, Sinus Rhythm O2 Sat by Pulse Oximetry: 97 (RA) Pulse Ox Interpretation: Normal Medical Decision Making Medical Decision Makin:46 Impression: medical clearance Initial Plan: --EKG --CXR Scribe Attestation: Documented by Jazmyn Tompkins acting as a scribe for Darrick Stanford MD Provider Scribe Attestation: All medical record entries made by the Scribe were at my direction and personally dictated by me. I have reviewed the chart and agree that the record accurately reflects my personal performance of the history, physical exam, medical decision making, and the department course for this patient. I have also personally directed, reviewed, and agree with the discharge instructions and disposition. 2316: Stable. AAOx3. Pain free. Tolerated PO. Fu with pcp. Crisis saw pt. Does not meet criteria for admit. Disposition - Clinical Impression Clinical Impression: Palpitations, Alcohol abuse - Patient ED Disposition Is Patient to be Admitted: No Counseled Patient/Family Regarding: Studies Performed, Diagnosis, Need For Followup - Disposition Referrals: [facility] [Outside] - 06/25/18 Disposition: Routine/Home Disposition Time: 23:18 Condition: STABLE Additional Instructions: You are medically and psychiatrically cleared for incarceration. Instructions: Palpitations (DC), Alcohol Use - When Is Drinking a Problem?
[2018-06-24 23:54] VITALS: BP 112/62; PULSE 76; TEMP 98.2; O2SAT 99
--- NOTE | 2018-06-25 10:58 | RAD ---
Date of service: 06/24/2018 HISTORY: chest pain COMPARISON: Chest radiographs 02/04/2018. FINDINGS: LUNGS: Limited inspiratory volume. No acute infiltrate identified bilaterally. PLEURA: No significant pleural effusion identified, no pneumothorax apparent. CARDIOVASCULAR: No aortic atherosclerotic calcification present. Normal cardiac size. No pulmonary vascular congestion. OSSEOUS STRUCTURES: No significant abnormalities. VISUALIZED UPPER ABDOMEN: Normal. OTHER FINDINGS: None. IMPRESSION: Diminished inspiratory volume. No acute infiltrate, pleural effusion or pneumothorax identified. No pulmonary vascular congestion apparent.
--- NOTE | 2018-06-25 13:51 | CARD ---
APPROVED REPORT Date of service: 06/24/2018 EKG Measurement Heart [id number] <Conclusion> Normal sinus rhythm Normal ECG
== END 2018-06-24 23:45 | disposition home or self-care (01) ==
LOC: H.ER 22:26
DX: F10.129 Alcohol abuse with intoxication, unspecified (principal); R00.2 Palpitations; F41.9 Anxiety disorder, unspecified

== ENCOUNTER 2018-07-05 18:20 | Emergency (ER) | payer OTHER ==
[2018-07-05 18:20] VITALS: BMI 27.9
--- NOTE | 2018-07-05 19:38 | ED PDOC ---
HPI: Psych/Substance Abuse Time Seen by Provider: 07/05/18 18:36 Chief Complaint (Nursing): Alcohol Ingestion Chief Complaint (Provider): ETOH History/Exam Limitations: no limitations Current Symptoms Are (Timing): Gone Now Severity: Mild Past Medical History Reviewed: Historical Data, Nursing Documentation, Vital Signs Vital Signs: Last Vital Signs Temp 97.6 F 07/05/18 18:35 Pulse 71 07/05/18 18:35 Resp 18 07/05/18 18:35 BP 130/82 07/05/18 18:35 Pulse Ox 98 07/05/18 18:35 - Medical History PMH: Anxiety Denies: Diabetes, Hepatitis, HIV, HTN, Chronic Kidney Disease, Seizures, Sexually Transmitted Disease - Family History Family History: States: Unknown Family Hx, Diabetes - Immunization History Hx Tetanus Toxoid Vaccination: No Hx Influenza Vaccination: No Hx Pneumococcal Vaccination: No - Home Medications Home Medications: Ambulatory Orders Medication Instructions Recorded No Known Home Med 01/12/18 - Allergies Allergies/Adverse Reactions: Allergies Allergy/AdvReac Type Severity Reaction Status Date / Time No Known Allergies Allergy Verified 07/05/18 18:40 Review of Systems ROS Statement: Except As Marked, All Systems Reviewed And Found Negative Physical Exam - Reviewed Nursing Documentation Reviewed: Yes Vital Signs Reviewed: Yes - Physical Exam Appears: Positive for: Well, Non-toxic, No Acute Distress. Negative for: Uncomfortable Head Exam: Positive for: ATRAUMATIC, NORMAL INSPECTION Skin: Positive for: Normal Color, Warm, Dry. Negative for: Diaphoresis, Pallor, Rash Eye Exam: Positive for: Normal appearance, EOMI, PERRL. Negative for: Nystagmus, Periorbital swelling, Periorbital tenderness ENT: Positive for: Normal ENT Inspection Neck: Positive for: Normal, Painless ROM, Supple. Negative for: Decreased ROM Cardiovascular/Chest: Positive for: Regular Rate, Rhythm Respiratory: Positive for: Normal Breath Sounds Pulses-Carotid (L): 2+ Pulses-Carotid (R): 2+ Pulses-Radial (L): 2+ Pulses-Radial (R): 2+ Back: Positive for: Normal Inspection. Negative for: L CVA Tenderness, R CVA Tenderness - ECG O2 Sat by Pulse Oximetry: 98 Medical Decision Making Medical Decision Making: Pt is of steady and strong gait and possesses no signs of clinical intoxication Pt is speaking in complete intelligent sentences and AOx3; pt requests discharge and is in no need of or desire of medical treatment at this time Disposition - Clinical Impression Clinical Impression: Alcohol use - Patient ED Disposition Is Patient to be Admitted: No Doctor Will See Patient In The: Office Counseled Patient/Family Regarding: Need For Followup - Disposition Referrals: Alcoholics Anonymous [Outside] Disposition: Routine/Home Disposition Time: 19:38 Condition: STABLE Instructions: Alcohol Use - When Is Drinking a Problem?
[2018-07-05 19:56] VITALS: BP 122/79; PULSE 82; RESP 20; TEMP 97.9; O2SAT 96
== END 2018-07-05 19:45 | disposition home or self-care (01) ==
LOC: H.ER 18:20
DX: F10.10 Alcohol abuse, uncomplicated (principal); F41.9 Anxiety disorder, unspecified

== ENCOUNTER 2018-07-10 20:24 | Emergency (ER) | payer OTHER ==
[2018-07-10 20:24] VITALS: BMI 27.9
[2018-07-10 20:29] VITALS: O2SAT 98
--- NOTE | 2018-07-10 22:12 | ED PDOC ---
HPI: Psych/Substance Abuse Time Seen by Provider: 07/10/18 22:04 Chief Complaint (Nursing): Alcohol Ingestion Chief Complaint (Provider): Alcohol Ingestion History Per: Patient, EMS History/Exam Limitations: no limitations Onset/Duration Of Symptoms: Mins Current Symptoms Are (Timing): Still Present Additional Complaint(s): 52 year old male presents to the ED via EMS for intoxication. Patient was found sitting on the ground by [place] police. Patient admits to drinking alcohol. Denies any fall or injury. Reports that he can stay with his sister sometimes but otherwise has to sleep outside. Denies drug use, suicidal ideation, homicidal ideation, or hallucination. PMD: none Past Medical History Reviewed: Historical Data, Nursing Documentation, Vital Signs Vital Signs: Last Vital Signs Temp 98.1 F 07/10/18 20:26 Pulse 98 H 07/10/18 20:26 Resp 17 07/10/18 20:26 BP 132/102 H 07/10/18 20:26 Pulse Ox 98 07/10/18 20:26 - Medical History PMH: Anxiety Denies: Diabetes, Hepatitis, HIV, HTN, Chronic Kidney Disease, Seizures, Sexually Transmitted Disease - Surgical History Surgical History: No Surg Hx - Family History Family History: States: Unknown Family Hx, Diabetes - Immunization History Hx Tetanus Toxoid Vaccination: No Hx Influenza Vaccination: No Hx Pneumococcal Vaccination: No - Home Medications Home Medications: Ambulatory Orders Medication Instructions Recorded RX: No Known Home Med 01/12/18 - Allergies Allergies/Adverse Reactions: Allergies Allergy/AdvReac Type Severity Reaction Status Date / Time No Known Allergies Allergy Verified 07/05/18 18:40 Review of Systems ROS Statement: Except As Marked, All Systems Reviewed And Found Negative Physical Exam - Reviewed Nursing Documentation Reviewed: Yes Vital Signs Reviewed: Yes - Physical Exam Appears: Positive for: No Acute Distress Head Exam: Positive for: ATRAUMATIC, NORMOCEPHALIC Skin: Positive for: Warm, Dry Eye Exam: Positive for: EOMI, PERRL, Conjunctival injection ENT: Negative for: Pharyngeal Erythema, Tonsillar Exudate Neck: Positive for: Painless ROM, Supple Cardiovascular/Chest: Positive for: Regular Rate, Rhythm. Negative for: Murmur Respiratory: Positive for: Normal Breath Sounds. Negative for: Respiratory Distress Gastrointestinal/Abdominal: Positive for: Soft. Negative for: Tenderness Back: Positive for: Normal Inspection. Negative for: Muscle Spasm Extremity: Positive for: Normal ROM. Negative for: Deformity Lymphatic: Negative for: Adenopathy Neurologic/Psych: Positive for: Gait (unsteady), Other (slurred speech). Negative for: Motor/Sensory Deficits - ECG O2 Sat by Pulse Oximetry: 98 (RA) Pulse Ox Interpretation: Normal Medical Decision Making Medical Decision Making: Initial Impression: Alcohol intoxication Initial Plan: Will observe for clinical sobriety. [address] Bray, pending sobriety. Scribe Attestation: Documented by Fernando Guerin acting as a scribe for Millicent Dixon MD. Provider Scribe Attestation: All medical record entries made by the Scribe were at my direction and personally dictated by me. I have reviewed the chart and agree that the record accurately reflects my personal performance of the history, physical exam, medical decision making, and the department course for this patient. I have also personally directed, reviewed, and agree with the discharge instructions and disposition. Disposition - Clinical Impression Clinical Impression: Alcohol abuse with uncomplicated intoxication - Disposition Disposition: Transfer of Care Disposition Time: 23:00 Condition: STABLE Print Language: CENTRAL AFRICAN
--- NOTE | 2018-07-10 23:21 | ED PDOC ---
- ECG O2 Sat by Pulse Oximetry: 98 (RA) Medical Decision Making Medical Decision Makin Patient endorsed to by Dr. Dixon, pending sobriety. 0455 Patient is awake, ambulatory and tolerating PO. He is requesting to go home and was instructed to seek professional help four drug abuse. -------- --------- Scribe Attestation: Documented by Lee Gavin acting as a scribe for Ana Lilia Bray. Provider Scribe Attestation: All medical record entries made by the Scribe were at my direction and personally dictated by me. I have reviewed the chart and agree that the record accurately reflects my personal performance of the history, physical exam, medical decision making, and the department course for this patient. I have also personally directed, reviewed, and agree with the discharge instructions and disposition. Disposition - Clinical Impression Clinical Impression: Alcohol abuse with uncomplicated intoxication - POA Present On Arrival: None - Disposition Disposition: Routine/Home Disposition Time: 04:55 Condition: STABLE Print Language: MONEGASQUE
[2018-07-11 05:06] VITALS: BP 127/68; PULSE 96; RESP 16; TEMP 97.9
== END 2018-07-11 05:06 | disposition home or self-care (01) ==
LOC: H.ER 20:24
DX: F10.120 Alcohol abuse with intoxication, uncomplicated (principal); F41.9 Anxiety disorder, unspecified

== ENCOUNTER 2018-07-17 01:46 | Emergency (ER) | payer OTHER ==
[2018-07-17 01:46] VITALS: BMI 27.9
[2018-07-17 01:55] VITALS: BP 144/98; PULSE 88; RESP 18; TEMP 98.2; O2SAT 98
--- NOTE | 2018-07-17 02:16 | ED PDOC ---
HPI: Psych/Substance Abuse Time Seen by Provider: 07/17/18 01:53 Chief Complaint (Nursing): Alcohol Ingestion Chief Complaint (Provider): Alcohol Ingestion History Per: Patient History/Exam Limitations: no limitations Current Symptoms Are (Timing): Still Present Suicide/Self Injury Attempted (Context): None Modifying Factor(s): Alcohol Additional Complaint(s): 52 year old male presents to the ED via [place] [employer] for medical and psychiatric clearance. Patient is well known to this provider and ED for multiple visits, homelessness and alcohol abuse. He is crying a lot in the ED, stating that he is upset because his mother a few months ago. Patient admits to drinking alcohol today. Denies HI and SI. He offers no medical complaints. PMD: Dr. Tuan Dang Past Medical History Reviewed: Historical Data, Nursing Documentation, Vital Signs Vital Signs: Last Vital Signs Temp 98.2 F 07/17/18 01:52 Pulse 88 07/17/18 01:52 Resp 18 07/17/18 01:52 BP 144/98 H 07/17/18 01:52 Pulse Ox 98 07/17/18 01:52 - Medical History PMH: Anxiety Denies: Diabetes, Hepatitis, HIV, HTN, Chronic Kidney Disease, Seizures, Sexually Transmitted Disease - Surgical History Surgical History: No Surg Hx - Family History Family History: States: Unknown Family Hx, Diabetes - Immunization History Hx Tetanus Toxoid Vaccination: No Hx Influenza Vaccination: No Hx Pneumococcal Vaccination: No - Home Medications Home Medications: Ambulatory Orders Medication Instructions Recorded No Known Home Med 01/12/18 - Allergies Allergies/Adverse Reactions: Allergies Allergy/AdvReac Type Severity Reaction Status Date / Time No Known Allergies Allergy Verified 07/05/18 18:40 Review of Systems ROS Statement: Except As Marked, All Systems Reviewed And Found Negative Physical Exam - Reviewed Nursing Documentation Reviewed: Yes Vital Signs Reviewed: Yes - Physical Exam Appears: Positive for: Non-toxic, No Acute Distress (in poor hygiene) Head Exam: Positive for: ATRAUMATIC, NORMAL INSPECTION, NORMOCEPHALIC Skin: Positive for: Normal Color, Dry Eye Exam: Positive for: EOMI, Normal appearance, PERRL Respiratory: Positive for: Normal Breath Sounds. Negative for: Respiratory Distress Extremity: Positive for: Normal ROM (x 4). Negative for: Deformity Neurologic/Psych: Positive for: Alert, Oriented (x 3). Negative for: Motor/Sensory Deficits - ECG O2 Sat by Pulse Oximetry: 98 (RA) Pulse Ox Interpretation: Normal Medical Decision Making Medical Decision Makin:55 Impression: 52 year old male with alcohol intoxication Initial Plan: --Crisis evaluation --Alcohol serum 03:04 --Patient is cleared by crisis. Diagnosis is alcohol use. He requires no further treatment and is stable for discharge. Scribe Attestation: Documented by Jazmyn Tompkins acting as a scribe for Jameel Lombardo MD Provider Scribe Attestation: All medical record entries made by the Scribe were at my direction and personally dictated by me. I have reviewed the chart and agree that the record accurately reflects my personal performance of the history, physical exam, medical decision making, and the department course for this patient. I have also personally directed, reviewed, and agree with the discharge instructions and disposition. Disposition - Clinical Impression Clinical Impression: Alcohol use - Patient ED Disposition Is Patient to be Admitted: No - Disposition Disposition: Routine/Home Disposition Time: 03:04 Condition: STABLE Additional Instructions: Patient is medically and psychiatrically stable for incarceration Instructions: Alcohol Use - When Is Drinking a Problem? Forms: Memento (Qatari)
== END 2018-07-17 03:32 | disposition home or self-care (01) ==
LOC: H.ER 01:46
DX: F10.129 Alcohol abuse with intoxication, unspecified (principal); F41.9 Anxiety disorder, unspecified; Z59.0 Homelessness